=== PATIENT | female | born 1965 | race Two or more races ===

== ENCOUNTER → 2019-03-10 09:04 | Outpatient (CLI) | payer OTHER ==
[~2019-03-10 09:04] MED LIST: URETRON DS1 TAB PO; VOLTAREM 50 MG PO; ZOVIRAX5 GM TP
== END | disposition home or self-care (01) ==
LOC: LAB 09:04
DX: E11.9 Type 2 diabetes mellitus without complications (principal); E03.8 Other specified hypothyroidism; E78.00 Pure hypercholesterolemia, unspecified

== ENCOUNTER 2020-02-13 13:18 | Outpatient (CLI) | payer OTHER | END 2020-02-13 13:19 | disposition home or self-care (01) | LOC: PPH VACUNA 13:18 | DX: Z23 Encounter for immunization (principal) ==

== ENCOUNTER 2020-04-08 07:38 | Outpatient (CLI) | payer OTHER | END 2020-04-08 07:46 | disposition home or self-care (01) | LOC: LAB 07:38 | PROVIDERS: ATTEND Internal Medicine | DX: D64.89 Other specified anemias (principal) ==

== ENCOUNTER 2020-04-10 08:56 | Outpatient (CLI) | payer OTHER | END 2020-04-10 09:28 | disposition home or self-care (01) | LOC: RAD 08:56 | PROVIDERS: ATTEND Internal Medicine | DX: R06.02 Shortness of breath (principal) ==

== ENCOUNTER → 2020-04-10 | Outpatient (CLI) | payer OTHER | END | disposition home or self-care (01) | LOC: NUCLEAR 08:43 | PROVIDERS: ATTEND Internal Medicine | DX: R00.2 Palpitations (principal) ==

== ENCOUNTER 2020-04-16 13:31 | Outpatient (CLI) | payer OTHER | END 2020-04-16 13:35 | disposition home or self-care (01) | LOC: LAB 13:31 | DX: Z20.828 Contact with and (suspected) exposure to other viral communicable diseases (principal) ==

== ENCOUNTER 2020-04-29 08:47 | Outpatient (CLI) | payer OTHER | END 2020-04-29 15:00 | disposition home or self-care (01) | LOC: LAB 08:47 | DX: Z20.828 Contact with and (suspected) exposure to other viral communicable diseases (principal); R05 Cough; R06.02 Shortness of breath; Z03.818 Encounter for observation for suspected exposure to other biological agents ruled out; R50.9 Fever, unspecified ==

== ENCOUNTER 2020-08-19 14:28 | Outpatient (CLI) | payer OTHER | END 2020-08-19 15:45 | disposition home or self-care (01) | LOC: LAB 14:28 | DX: Z03.818 Encounter for observation for suspected exposure to other biological agents ruled out (principal) ==

== ENCOUNTER → 2020-10-15 | Outpatient (CLI) | payer OTHER | END | disposition home or self-care (01) | LOC: LAB 13:39 | DX: R05 Cough (principal); R50.9 Fever, unspecified; R06.1 Stridor; R06.02 Shortness of breath; J12.82 Pneumonia due to coronavirus disease 2019; M35.81 Multisystem inflammatory syndrome; M35.89 Other specified systemic involvement of connective tissue; Z11.52 Encounter for screening for COVID-19; Z20.822 Contact with and (suspected) exposure to COVID-19; Z03.818 Encounter for observation for suspected exposure to other biological agents ruled out ==

== ENCOUNTER → 2020-10-16 06:24 | Outpatient (CLI) | payer OTHER | END | disposition home or self-care (01) | LOC: LAB 06:24 | PROVIDERS: ATTEND Physical Medicine & Rehabilitation | DX: D64.89 Other specified anemias (principal); E78.49 Other hyperlipidemia; E03.8 Other specified hypothyroidism; E55.9 Vitamin D deficiency, unspecified; D51.8 Other vitamin B12 deficiency anemias; R19.7 Diarrhea, unspecified ==

== ENCOUNTER 2020-10-16 14:51 | Outpatient (CLI) | payer OTHER | END 2020-10-16 14:57 | disposition home or self-care (01) | LOC: RAD 14:51 | PROVIDERS: ATTEND Physical Medicine & Rehabilitation | DX: M54.2 Cervicalgia (principal); M54.5 Low back pain ==

== ENCOUNTER 2020-11-04 08:00 | Outpatient (CLI) | payer OTHER | END 2020-11-04 08:12 | disposition home or self-care (01) | LOC: MAMO-SONO 08:00 | PROVIDERS: ATTEND Internal Medicine Cardiovascular Disease | DX: N63.11 Unspecified lump in the right breast, upper outer quadrant (principal) ==

== ENCOUNTER 2020-11-08 13:54 | Outpatient (CLI) | payer OTHER | END 2020-11-08 13:55 | disposition home or self-care (01) | LOC: NUCLEAR 13:54 | PROVIDERS: ATTEND Internal Medicine Cardiovascular Disease | DX: M81.0 Age-related osteoporosis without current pathological fracture (principal); E55.9 Vitamin D deficiency, unspecified ==

== ENCOUNTER 2020-12-10 10:17 | Outpatient (CLI) | payer OTHER | END 2020-12-10 10:22 | disposition home or self-care (01) | LOC: NUCLEAR 10:17 | PROVIDERS: ATTEND Internal Medicine Cardiovascular Disease | DX: I87.2 Venous insufficiency (chronic) (peripheral) (principal) ==

== ENCOUNTER → 2020-12-11 07:31 | Outpatient (CLI) | payer OTHER | END | disposition home or self-care (01) | LOC: NUCLEAR 06:45 | PROVIDERS: ATTEND Internal Medicine Cardiovascular Disease | DX: I73.9 Peripheral vascular disease, unspecified (principal) ==

== ENCOUNTER 2021-01-17 14:31 | Outpatient (CLI) | payer OTHER | END 2021-01-17 15:00 | disposition home or self-care (01) | LOC: LAB 14:31 | PROVIDERS: ATTEND Emergency Medicine Pediatric Emergency Medicine | DX: Z03.818 Encounter for observation for suspected exposure to other biological agents ruled out (principal) ==

== ENCOUNTER 2021-02-25 08:00 | Outpatient (CLI) | payer OTHER | END 2021-02-25 08:30 | disposition home or self-care (01) | LOC: PPH VACUNA 08:00 | PROVIDERS: ATTEND Emergency Medicine Pediatric Emergency Medicine | DX: Z23 Encounter for immunization (principal) ==

== ENCOUNTER 2021-04-17 08:00 | Outpatient (CLI) | payer OTHER | END 2021-04-17 08:30 | disposition home or self-care (01) | LOC: PPH VACUNA 08:00 | PROVIDERS: ATTEND Emergency Medicine Pediatric Emergency Medicine | DX: Z23 Encounter for immunization (principal) ==

== ENCOUNTER 2021-05-21 07:30 | Outpatient (CLI) | payer OTHER | END 2021-05-21 07:40 | disposition home or self-care (01) | LOC: LAB 07:30 | DX: Z03.818 Encounter for observation for suspected exposure to other biological agents ruled out (principal) ==

== ENCOUNTER 2022-01-05 07:11 | Outpatient (CLI) | payer OTHER ==
[2022-01-07] MEDS ORDERED: FOSAMAX70 MG PO (08:16)
== END 2022-01-05 07:13 | disposition home or self-care (01) ==
LOC: EDBD 07:11 → NUCLEAR 07:11
PROVIDERS: ATTEND Internal Medicine Cardiovascular Disease
DX: R07.9 Chest pain, unspecified (principal); I10 Essential (primary) hypertension

== ENCOUNTER 2022-01-06 13:12 | Outpatient (CLI) | payer OTHER ==
[2022-01-07] MEDS ORDERED: FOSAMAX70 MG PO (08:16)
== END 2022-01-06 13:23 | disposition home or self-care (01) ==
LOC: RAD 13:12
PROVIDERS: ATTEND Internal Medicine Cardiovascular Disease
DX: M12.9 Arthropathy, unspecified (principal); M46.48 Discitis, unspecified, sacral and sacrococcygeal region

== ENCOUNTER → 2022-01-07 | Emergency (ER) | payer OTHER ==
[~2022-01-07] VITALS: Ht 152.4 cm; Wt 54.4 kg
[~2022-01-07] MED LIST changes: +FOSAMAX70 MG PO
== END | disposition home or self-care (01) ==
LOC: ER 08:11
DX: M54.89 Other dorsalgia (principal)

== ENCOUNTER 2022-01-12 06:17 | Outpatient (CLI) | payer OTHER | END 2022-01-12 06:32 | disposition home or self-care (01) | LOC: LAB 06:17 → EDBD 06:17 → LAB 06:32 | PROVIDERS: ATTEND Internal Medicine Cardiovascular Disease | DX: E55.9 Vitamin D deficiency, unspecified (principal); I10 Essential (primary) hypertension; E11.9 Type 2 diabetes mellitus without complications; E03.9 Hypothyroidism, unspecified; E78.2 Mixed hyperlipidemia ==

== ENCOUNTER 2022-01-28 08:00 | Outpatient (CLI) | payer OTHER | END 2022-01-28 08:05 | disposition home or self-care (01) | LOC: PPH VACUNA 08:00 | PROVIDERS: ATTEND Emergency Medicine Pediatric Emergency Medicine | DX: Z23 Encounter for immunization (principal) ==

== ENCOUNTER 2022-02-20 08:18 | Outpatient (CLI) | payer OTHER | END 2022-02-20 08:28 | disposition home or self-care (01) | LOC: PPH VACUNA 08:18 | PROVIDERS: ATTEND Emergency Medicine Pediatric Emergency Medicine | DX: Z23 Encounter for immunization (principal) ==

== ENCOUNTER 2022-03-08 08:42 | Emergency (ER) | payer OTHER ==
[~2022-03-08] VITALS: Ht 152.4 cm; Wt 54.4 kg
[2022-03-08] MEDS ORDERED: ORPHENADRINE C100 MG PO (11:21)
== END 2022-03-08 11:23 | disposition home or self-care (01) ==
LOC: ER 08:42
DX: R07.89 Other chest pain (principal)

== ENCOUNTER 2022-06-12 10:08 | Emergency (ER) | payer OTHER ==
[~2022-06-12] VITALS: Ht 152.4 cm; Wt 54.4 kg
[~2022-06-12 10:08] MED LIST changes: +ORPHENADRINE C100 MG PO
== END 2022-06-12 11:36 | disposition home or self-care (01) ==
LOC: ER 10:08
DX: L03.211 Cellulitis of face (principal)

== ENCOUNTER 2022-08-11 08:11 | Outpatient (CLI) | payer OTHER | END 2022-08-11 08:12 | disposition home or self-care (01) | LOC: NUCLEAR 08:11 | PROVIDERS: ATTEND Internal Medicine Cardiovascular Disease | DX: R07.89 Other chest pain (principal) ==

== ENCOUNTER 2022-10-16 09:16 | Outpatient (CLI) | payer OTHER | END 2022-10-16 09:24 | disposition home or self-care (01) | LOC: LAB 09:16 | PROVIDERS: ATTEND Internal Medicine Pulmonary Disease | DX: E83.9 Disorder of mineral metabolism, unspecified (principal) ==

== ENCOUNTER → 2022-11-30 | Outpatient (CLI) | payer OTHER | END | disposition home or self-care (01) | LOC: TOM 07:14 | PROVIDERS: ATTEND Internal Medicine Pulmonary Disease | DX: R06.02 Shortness of breath (principal) ==

== ENCOUNTER → 2023-01-28 | Outpatient (CLI) | payer OTHER | END | disposition home or self-care (01) | LOC: PPH VACUNA | PROVIDERS: ATTEND Emergency Medicine Pediatric Emergency Medicine | DX: Z23 Encounter for immunization (principal) ==

== ENCOUNTER → 2023-01-28 | Outpatient (CLI) | payer OTHER | END | disposition home or self-care (01) | LOC: PPH VACUNA | PROVIDERS: ATTEND Emergency Medicine Pediatric Emergency Medicine | DX: Z23 Encounter for immunization (principal) ==

== ENCOUNTER 2023-05-01 13:17 | Emergency (ER) | payer OTHER ==
[~2023-05-01] VITALS: Ht 152.4 cm; Wt 55.8 kg
== END 2023-05-01 14:27 | disposition home or self-care (01) ==
LOC: ER 13:17
DX: M79.631 Pain in right forearm (principal)

== ENCOUNTER 2023-06-08 08:31 | Outpatient (CLI) | payer OTHER | END 2023-06-08 08:36 | disposition home or self-care (01) | LOC: SONOGRAMA 08:31 | DX: R10.2 Pelvic and perineal pain (principal) ==

== ENCOUNTER 2024-03-30 16:30 | Outpatient (CLI) | payer OTHER | END 2024-03-30 16:40 | disposition home or self-care (01) | LOC: PPH VACUNA 16:30 | PROVIDERS: ATTEND Emergency Medicine Pediatric Emergency Medicine | DX: Z23 Encounter for immunization (principal) ==

== ENCOUNTER 2024-05-11 08:47 | Outpatient (CLI) | payer OTHER | END 2024-05-11 12:42 | disposition home or self-care (01) | LOC: LAB 08:47 | DX: Z20.828 Contact with and (suspected) exposure to other viral communicable diseases (principal); J11.1 Influenza due to unidentified influenza virus with other respiratory manifestations ==

== ENCOUNTER 2025-03-15 09:00 | Outpatient (CLI) | payer OTHER | END 2025-03-15 09:10 | disposition home or self-care (01) | LOC: PPH VACUNA 09:00 | PROVIDERS: ATTEND Emergency Medicine Pediatric Emergency Medicine | DX: Z23 Encounter for immunization (principal) ==